=== PATIENT | female | born 1940 | race Caucasian/White ===

== ENCOUNTER → 2023-11-09 12:15 | Outpatient (REF) | payer MEDICARE, OTHER, SELFPAY | LOC: WDC 12:15 | PROVIDERS: ATTENDING PHYSICIAN Obstetrics & Gynecology; FAMILY PHYSICIAN Family Medicine | DX: Z12.31 Encounter for screening mammogram for malignant neoplasm of breast (principal) | CPT/HCPCS: 77063; 77067 ==

== ENCOUNTER 2024-01-27 13:51 | Emergency (ER) | payer MEDICARE, OTHER, SELFPAY ==
[2024-01-27 13:54] VITALS: BP 183/79
--- NOTE | 2024-01-27 14:39 | ED.GENMED ---
History of Present Illness
General
Chief Complaint: Allergic Reaction
Source: patient, spouse and family
Exam Limitations: none
Time Seen by Provider: 01/27/24 14:30
Nursing documentation reviewed up to this point in time: agreed with
History of Present Illness
History of Present Illness:
83-year-old female with past medical history as documented who presents to the emergency room with her family for evaluation after bee sting. 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 Patient reports that about an hour ago
she was folding some laundry when she felt a sting on her neck. She was able to bat to be away and caught the bee appears to be a yellowjacket she says. She sustained 1 sting to the right side of her neck. No additional stings. Came to the
emergency room given her history of allergy. She denies any rash or pruritus aside from localized reaction to the sting. She denies any shortness of breath. She denies any swelling in the face or mouth, no sensation of swelling in the throat.
She denies any nausea, vomiting, abdominal cramping. She denies any other complaints. She does have an EpiPen but did not administer it due to minimal symptoms.
Past History
Past History
ED Past Medical History: Arrthythmia (Atrial fib), HTN and Other (Pulmonary embolism, hypertension, arthritis.)
ED Past Surgical History: Appendectomy, Cardiac (Cardioversion,), Cholecystectomy, Orthopedic (Ford knee replacements) and Other (Noncontributory)
Social History
Tobacco: Non-smoker
Alcohol: None
Drug: None
Personal:
Living: with family
Family History
Family History: Other (Noncontributory)
Review of Systems
Review of Systems
All Other Systems: ROS reviewed and negative except as documented in HPI and ROS
EENT: Reports other (Denies facial or mouth swelling, throat swelling)
Respiratory: Denies trouble breathing
ABD/GI: Denies abdominal pain, nausea or vomiting
Skin: Denies itching or rash
Neurological: Denies dizzy
Phy Exam
Physical Exam
Physical Exam:
General: Awake, alert, oriented x3; anxious but no acute distress
Head: Normocephalic, atraumatic
Eyes: Conjunctiva normal
Throat: Airway intact, handling secretions, no swelling of the lips or tongue, midline uvula with no edema
Neck: Trachea midline, supple without meningismus; she has minor welt on the right anterior lateral neck with some localized redness but no significant amount of swelling
Lungs: Clear to auscultation bilaterally, no wheezing, rales, rhonchi
Heart: Regular rate and rhythm, no murmurs, gallops, or rubs
Abd: Soft, non distended, nontender
Neuro: No gross deficits
Skin: Staining on the right anterior lateral neck with localized redness but no hives or pruritus noted on rest of skin examination
Extremities: No edema in extremities, equal pulses in all extremities
Scores
Heart Failure Risk
Heart Failure Risk Score: Not Applicable
Heart Score for Chest Pain Patients
STEMI patient?: Not applicable
Withdrawal Assessment of Alcohol
Withdrawal Assessment Completed?: Not applicable
Course
Orders/Labs/Results
Orders:
Orders
01/27/24 14:38
Dexamethasone [Decadron] 10 mg PO NOW STA
Diphenhydramine [Benadryl] 25 mg PO NOW STA
Famotidine [Pepcid] 20 mg PO NOW STA
01/27/24 15:59
EKG [Electrocardiogram (*1)] Urgent
Reason for Study: Bradycardia / Tachycardia
EKG- Treatment ONCE
Vital Signs
Initial and Last Documented VS:
Initial Vital Signs
Temp Pulse Resp BP Pulse Ox
36.7 C 46 16 183/79 98
01/27/24 13:54 01/27/24 13:54 01/27/24 13:54 01/27/24 13:54 01/27/24 13:54
Last Documented Vital Signs
Temp Pulse Resp BP Pulse Ox
36.7 C 46 16 182/79 99
01/27/24 13:54 01/27/24 13:54 01/27/24 13:54 01/27/24 15:00 01/27/24 15:45
MDM/Problems Addressed
Differential Diagnosis Includes:
Insect bite/sting
MDM/Problems Addressed:
83-year-old female with history of bee allergy presents for evaluation after bee sting to the right side of her neck today about an hour ago. She has no symptoms aside from localized redness. She was hypertensive in triage improved by my
assessment, also mild to moderate bradycardia. Exam as above. At this point she has signs of localized sting but no signs of anaphylactic reaction. Will treat with a dose of dexamethasone and antihistamines. No indication for epinephrine at this
point without signs of anaphylaxis. Will monitor clinically here and reassess.
Clinical reassessment patient feeling very well. Localized erythema around the sting has resolved and she is feeling very well. Will continue to monitor for total of 4 hours from time of sting.
Patient has been persistently bradycardic here in the 40s. EKG shows sinus rhythm with first-degree AV block. She is on metoprolol for A-fib/SVT. She follows with Dr. Lopez for cardiology. She is not having any symptoms from her bradycardia.
Discussed case with cardiology recommended no changes to medications in the absence of symptoms. She can follow-up in the office. I did discuss with patient that she has had high blood pressure here as well, she will monitor it at home and
follow-up with her primary doctor.
Observed here for 4 hours status post bee sting. Local reaction has resolved and she has had no systemic symptoms. Stable for discharge at this point. She already has EpiPen and no need for refill. We did discuss her hypertension and bradycardia
as above, will follow-up as an outpatient. She is requesting discharge�we spoke about return precautions and all questions were answered.
Acute Exacerbation and/or Progression of Chronic Illness:
Acutely hypertensive likely related to anxiety�resolved without intervention continue to monitor but no additional antihypertensive treatment indicated at present
Acute Exacerbation and/or Progression of Chronic Illness: HTN
*Pulse Oximetry
Patient hypoxic: no
*Critical Care Note
Total Time (30-74mins, 75-104mins- exclusive of procedures): Not Applicable
Data Reviewed
Source: patient, spouse and family
Patient Management
Discussion with other providers: Assistant Property Manager (Discussed with cardiology)
ED Attending Note
-
Portions of this chart may have been created with voice recognition software.� Occasional wrong word or��sound alike� substitutions may have occurred due to the inherent limitations of voice recognition software.
Discharge Plan
Departure
Patient Disposition: Home (Routine Discharge)
Date of Disposition: 01/27/24
Time of Disposition: 16:54
Patient with high blood pressure during this ER visit?: Yes
Discharge Problem:
Bee sting reaction, Hypertension
Instructions: Insect Bites and Stings ED, BLOOD PRESSURE
Prescriptions:
No Action
ascorbic acid (vitamin C) [Vitamin C] 500 MG tablet
500 mg PO DAILY
vgxyuxdy-xox-VW-lycopen-lutein [Centrum Silver] 1 EACH tablet
2 tab PO DAILY
calcium citrate-vitamin D3 1 EACH tablet
1 tab PO DAILY
rxrwd-3l-yhe-epa-fish oil-D3 [Dry Eye [place] Benefits] 1 EACH capsule
3 ea PO DAILY
apixaban [Eliquis] 5 MG tablet
5 mg PO BID
lifitegrast [Xiidra] 1 EACH dropperette
1 drp BOTH EYES BID
Balance Of Nature 6 TAB Tab
6 tab PO DAILY
Patient Comments:
3 fruit/ 3 veg
albuterol sulfate [Ventolin HFA] 90 MCG/PUFF HFA aerosol inhaler
2 puff inhalation Q4HPRN PRN (Reason: SOB)
Patient Comments:
Pt has RX, never used
metoprolol succinate 25 MG tablet extended release 24 hr
25 mg PO DAILY Qty: 0 0RF
Rx Instructions:
Please note decreased dose
Referrals:
Endy Lopez MD [Active] - Call in 1-3 days for appt
Jeovanny Chris MD [Family Provider] -
Activity Restrictions/Additional Instructions:
Thank you for visiting the Emergency Department at [facility].
1. Please schedule a follow up appointment as directed. Call first thing tomorrow morning to make an appointment.
2. If indicated, please take your medications as instructed and indicated on discharge paperwork.
3. If any of your symptoms do not improve, or persist, or become more severe within 6-12 hours, please return to the emergency department for further care.
4. Please return to the emergency department if you develop a headache, neck pain/stiffness, fever greater than 100.4F, chest pain, shortness of breath, persistent nausea, vomiting, slurred speech, difficulty walking, numbness/tingling, weakness,
signs of infection or any other symptoms that are worrisome to you.
Please call [phone] if you have any questions.
Interventions
Interventions:
*General Assessment Last Done: 01/27/24 13:54
*ED COVID-19 Vaccine History Last Done: 01/27/24 13:54
ED- Cardiac Assessment Last Done: 01/27/24 14:49
ED- Pulmonary Assessment Last Done: 01/27/24 14:49
ED-Skin Assessment Last Done: 01/27/24 14:49
Discharge Date and Time
Print Language: FRISIAN
[2024-01-27] MEDS: BENADRYL 25 MG PO (14:45)
[2024-01-27] MEDS: PEPCID 20 MG PO (14:45)
[2024-01-27] MEDS: DECADRON 10 MG PO (14:45)
[2024-01-27 14:49] VITALS: BMI 32.9
[2024-01-27 14:56] VITALS: BP 188/79
[2024-01-27 15:00] VITALS: BP 182/79
== END 2024-01-27 17:24 | disposition home or self-care (01) ==
LOC: EMR 13:51
PROVIDERS: EMERGENCY PHYSICIAN Emergency Medicine; FAMILY PHYSICIAN Family Medicine
DX: T63.441A Toxic effect of venom of bees, accidental (unintentional), initial encounter (principal); I48.91 Unspecified atrial fibrillation; I10 Essential (primary) hypertension; I47.10 Supraventricular tachycardia, unspecified; Z86.711 Personal history of pulmonary embolism; Z90.49 Acquired absence of other specified parts of digestive tract; Z96.653 Presence of artificial knee joint, bilateral
CPT/HCPCS: 99283; 93005

== ENCOUNTER → 2024-06-27 07:55 | Outpatient (REF) | payer MEDICARE, OTHER, SELFPAY | LOC: DHCBC/DCA 07:55 | PROVIDERS: ATTENDING PHYSICIAN Internal Medicine Cardiovascular Disease; FAMILY PHYSICIAN Family Medicine | DX: R07.89 Other chest pain (principal) | CPT/HCPCS: 78452; 93017; A9500; J2785 ==

== ENCOUNTER → 2024-07-18 15:08 | Outpatient (REF) | payer MEDICARE, OTHER, SELFPAY | LOC: HWRAD 15:08 | PROVIDERS: ATTENDING PHYSICIAN Family Medicine | DX: Z20.828 Contact with and (suspected) exposure to other viral communicable diseases (principal); J44.9 Chronic obstructive pulmonary disease, unspecified; I48.0 Paroxysmal atrial fibrillation; R05.9 Cough, unspecified; J01.90 Acute sinusitis, unspecified | CPT/HCPCS: 71046 ==

== ENCOUNTER → 2024-10-01 14:02 | Outpatient (REF) | payer MEDICARE, OTHER, SELFPAY | LOC: HWRAD 14:02 | PROVIDERS: ATTENDING PHYSICIAN Obstetrics & Gynecology; FAMILY PHYSICIAN Family Medicine | DX: Z78.0 Asymptomatic menopausal state (principal) | CPT/HCPCS: 77080 ==

== ENCOUNTER → 2024-11-27 12:50 | Outpatient (REF) | payer MEDICARE, OTHER, SELFPAY | LOC: WDC 12:50 | PROVIDERS: ATTENDING PHYSICIAN Obstetrics & Gynecology; FAMILY PHYSICIAN Family Medicine | DX: Z12.31 Encounter for screening mammogram for malignant neoplasm of breast (principal) | CPT/HCPCS: 77063; 77067 ==

== ENCOUNTER 2024-12-12 02:51 | Emergency (ER) | payer MEDICARE, OTHER, SELFPAY ==
[2024-12-12 03:03] VITALS: BP 161/76
[2024-12-12 03:26] LABS: % Basophils 1.3 % (0-2); % Eosinophils 1.5 % (0-6); % Immature Granulocytes 0.2 % (0-0.5); % Lymphocytes 38.3 % (20.5-51.1); % Monocytes 9.8 % (1.7-9.3); % Neutrophils 48.9 % (42.2-75.2); Absolute Basophils 0.1 10^3/uL (0-0.2); Absolute Eosinophils 0.1 10^3/uL (0-0.7); Absolute Lymphocytes 1.8 10^3/uL (1.2-3.4); Absolute Monocytes 0.5 10^3/uL (0.1-0.6); Absolute Neutrophils 2.4 10^3/uL (1.4-6.5); Hematocrit 42.3 % (37.0-47.0); Hemoglobin 14.7 g/dL (12.0-16.0); Mean Corp Hgb Conc. 34.8 g/dL (33.0-37.0); Mean Corpuscular Hgb 32.3 pg (27.0-31.0); Mean Platelet Volume 9.1 fL (7.4-10.4); Nucleated Red Blood Cells % 0 %; Platelet Count 205 10^3/uL (130-400); Red Blood Cell Count 4.55 10^6/uL (4.20-5.40); Red Cell Dist. Width 11.9 % (11.5-14.5); White Blood Cell Count 4.8 10^3/uL (4.8-10.8)
[2024-12-12 03:53] LABS: ALT (SGPT) 18 U/L (0-35); AST (SGOT) 28 U/L (14-36); Albumin 4.3 g/dl (3.5-5.0); Alkaline Phosphatase 80 U/L (38-126); Blood Urea Nitrogen 15 mg/dl (7-17); Calcium 10.2 mg/dl (8.4-10.2); Carbon Dioxide 28 mmol/L (22-30); Chloride 101 mmol/L (98-107); Glucose 98 mg/dl (70-99); Lipase 172 U/L (23-300); Potassium 4.2 mmol/L (3.5-5.1); Sodium 136 mmol/L (135-145); Total Bilirubin 0.6 mg/dl (0.2-1.3); eGFR > 60.00
--- NOTE | 2024-12-12 05:40 | ED.GENMED ---
History of Present Illness
<Emily Schilling PA-C - Last Filed: 12/12/24 08:22>
General
Chief Complaint: Abdominal Pain
Source: patient
Exam Limitations: none
Time Seen by Provider: 12/12/24 05:14
Nursing documentation reviewed up to this point in time: agreed with
History of Present Illness
History of Present Illness:
84-year-old female with a past medical history of A-fib on Eliquis, PE, hypertension, presents emergency department today with concerns of left abdominal/rib pain. Patient reports that this started around 7 PM prior to going to bed. The pain woke
her up from sleep. Does get better with Tylenol. She denies any nausea or vomiting. She denies any fevers or chills. She also notes back pain on both sides. She denies any dysuria. She denies any hematuria. She has a past surgical history of
appendectomy and cholecystectomy. She denies shortness of breath or chest pain.
Past History
<Emily Schilling PA-C - Last Filed: 12/12/24 08:22>
Past History
ED Past Medical History: Arrthythmia (Atrial fib), HTN and Other (Pulmonary embolism, hypertension, arthritis.)
ED Past Surgical History: Appendectomy, Cardiac (Cardioversion,), Cholecystectomy, Orthopedic (Ford knee replacements) and Other (Noncontributory)
Social History
Tobacco: Non-smoker
Alcohol: None
Drug: None
Personal:
Living: with family
Family History
Family History: Other (Noncontributory)
Review of Systems
<Emily Schilling PA-C - Last Filed: 12/12/24 08:22>
Review of Systems
All Other Systems: ROS reviewed and negative except as documented in HPI and ROS
Phy Exam
<Emily Schilling PA-C - Last Filed: 12/12/24 08:22>
Physical Exam
Physical Exam:
General: Patient is well appearing and in no acute distress; non-toxic
Skin: Warm and dry, no rashes or lesions
Head: Normocephalic, atraumatic
Eyes: Sclera non-icteric. EOMs intact.
Cardiac: Regular rate and rhythm, no murmurs
Peripheral Vascular: No lower extremity swelling or edema, negative Homans' sign bilaterally
Pulm: Normal respiratory effort, no wheezes, rales, rhonchi, left lower rib tenderness to palpation
Abdomen: No abdominal tenderness to palpation, abdomen soft
Neuro: CN II-XII intact, no focal neurologic deficits.
Psychiatric: Appropriate mood and affect.
Course
<Emily Schilling PA-C - Last Filed: 12/12/24 08:22>
Orders/Labs/Results
Orders:
Orders
12/12/24 03:16
Complete Blood Count/With Diff Urgent
Comprehensive Metabolic Panel Urgent
Lipase Urgent
12/12/24 05:45
CT Abd/pel Without Iv Or Oral Urgent
Comment:
Reason For Exam: left cva tenderness
12/12/24 05:53
Urinalysis Reflex To Culture Urgent
Date Specimen was Collected: 12/12/24
Time Specimen was Collected: 05:52
12/12/24 06:06
Electrocardiogram (*1) Urgent
Reason for Study: Abdominal Pain
12/12/24 06:27
Troponin I Urgent
12/12/24 07:04
Lidocaine [Lidocaine 4% Patch] 1 patch TOPICAL DAILY ONE
Apply Lidocaine patch(s) to:: left flank/rib area
Abnormal Lab Results
12/12/24
03:16
MCH 32.3 H pg
(27.0-31.0)
Monocytes % 9.8 H %
(1.7-9.3)
06/05/25 03:16
12/12/24 03:16
Vital Signs
Initial and Last Documented VS:
Initial Vital Signs
Temp Pulse Resp BP Pulse Ox
97.9 F 50 18 161/76 98
12/12/24 03:03 12/12/24 03:03 12/12/24 03:03 12/12/24 03:03 12/12/24 03:03
Last Documented Vital Signs
Temp Pulse Resp BP Pulse Ox
97.9 F 50 18 135/68 97
12/12/24 03:03 12/12/24 03:03 12/12/24 03:03 12/12/24 07:00 12/12/24 07:00
<Laura Estrada, DO - Last Filed: 12/12/24 07:40>
Orders/Labs/Results
Orders:
Orders
12/12/24 03:16
Complete Blood Count/With Diff Urgent
Comprehensive Metabolic Panel Urgent
Lipase Urgent
12/12/24 05:45
CT Abd/pel Without Iv Or Oral Urgent
Comment:
Reason For Exam: left cva tenderness
12/12/24 05:53
Urinalysis Reflex To Culture Urgent
Date Specimen was Collected: 12/12/24
Time Specimen was Collected: 05:52
12/12/24 06:06
Electrocardiogram (*1) Urgent
Reason for Study: Abdominal Pain
12/12/24 06:27
Troponin I Urgent
12/12/24 07:04
Lidocaine [Lidocaine 4% Patch] 1 patch TOPICAL DAILY ONE
Apply Lidocaine patch(s) to:: left flank/rib area
Abnormal Lab Results
12/12/24
03:16
MCH 32.3 H pg
(27.0-31.0)
Monocytes % 9.8 H %
(1.7-9.3)
12/12/24 03:16
12/12/24 03:16
Vital Signs
Initial and Last Documented VS:
Initial Vital Signs
Temp Pulse Resp BP Pulse Ox
97.9 F 50 18 161/76 98
12/12/24 03:03 12/12/24 03:03 12/12/24 03:03 12/12/24 03:03 12/12/24 03:03
Last Documented Vital Signs
Temp Pulse Resp BP Pulse Ox
97.9 F 50 18 135/68 97
12/12/24 03:03 12/12/24 03:03 12/12/24 03:03 12/12/24 07:00 12/12/24 07:00
<Emily Schilling PA-C - Last Filed: 12/12/24 08:22>
MDM/Problems Addressed
Differential Diagnosis Includes:
Differentials include nephrolithiasis, pleurisy,, pyelonephritis, UTI, gastritis, rib contusion
MDM/Problems Addressed:
85-year-old female presents emergency department today with concerns of left upper abdominal pain/left rib pain. Pain improves with Tylenol. Upon arrival to emergency department, she feels well and she did not require any additional medication for
pain. Her symptoms resolved completely. Her urinalysis is negative for infection. CBC and CMP are unremarkable. Her CAT scan shows incidental findings but nothing to explain her symptoms today. Suspect musculoskeletal etiology versus recently
passed stone. We did obtain an EKG because of the vague upper abdominal pain/rib pain which did show T wave inversions laterally which not seen previously so he did get a troponin which was undetectable. No need to repeat troponin considering
patient did not have chest pain and her symptoms resolved. Did recommend following up with her media marketing director. And her PCP. Patient stable for discharge.
<Emily Schilling PA-C - Last Filed: 12/12/24 08:22>
*Critical Care Note
Total Time (30-74mins, 75-104mins- exclusive of procedures): Not Applicable
ED Attending Note
<Emily Schilling PA-C - Last Filed: 12/12/24 08:22>
-
Portions of this chart may have been created with voice recognition software.� Occasional wrong word or��sound alike� substitutions may have occurred due to the inherent limitations of voice recognition software.
<Laura Estrada DO - Last Filed: 12/12/24 07:40>
ED Attending Note
Patient seen and examined by attending physician: Yes
I performed a history and physical exam of patient and discussed management with resident, I reviewed resident's note and agree with documented findings and plan of care.: Yes
ED Attending Note:
84-year-old quite spry woman who resides at home with her . History of paroxysmal atrial fibrillation chronically maintained on Eliquis. History of hypertension, lumbar disc disease with remote history of sciatica.
She presents with somewhat abrupt onset of left upper quadrant pain that began around 8 PM as well as some intermittent mid back pain. She admits the pain would come and go in waves. No chest pain, no cough no shortness of breath, no nausea or
vomiting. No history of similar episodes in the past.
She denies injury or fall but was helping to move furniture the day prior.
Initial exam remarkable for mild tenderness left distal costal margin. No reproducible back tenderness, no CVA tenderness.
No appreciable abdominal tenderness.
Concern for musculoskeletal pain, renal colic, less likely ACS.
Patient is now pain-free and comfortable.
Labs are unremarkable as is urinalysis. Awaiting troponin.
EKG shows sinus bradycardia, similar to previous. She remains hemodynamically stable.
CAT scan shows left renal cyst, concern for potential mild fullness of left renal pelvis however urinalysis is clear without hematuria. Pain may have been related to recently passed stone.
There is also note of a right pelvic mass concern for right ovarian mass. Patient continues to have no abdominal pain specifically no lower abdominal tenderness. She follows regularly with [facility] [facility] with routine visit just 1 month ago.
If troponin is negative will plan for discharge to home with recommendation for prompt follow-up with PCP for regular check and recommend follow-up with [employer] [facility] as well.
Return precautions discussed.
Discharge Plan
Departure
Patient Disposition: Home (Routine Discharge)
Date of Disposition: 12/12/24
Time of Disposition: 07:31
Patient with high blood pressure during this ER visit?: Yes
Condition: Good
Discharge Problem:
Rib pain on left side
Instructions: Back Pain, BLOOD PRESSURE
Prescriptions:
New
lidocaine 5 % adhesive patch,medicated
1 patch topical DAILY Qty: 30 0RF
No Action
ascorbic acid (vitamin C) [Vitamin C] 500 MG tablet
500 mg PO DAILY
msvpccqd-kbw-ZJ-lycopen-lutein [Centrum Silver] 1 EACH tablet
2 tab PO DAILY
calcium citrate-vitamin D3 1 EACH tablet
1 tab PO DAILY
mmrhu-4m-aog-epa-fish oil-D3 [Dry Eye [place] Benefits] 1 EACH capsule
3 ea PO DAILY
apixaban [Eliquis] 5 MG tablet
5 mg PO BID
lifitegrast [Xiidra] 1 EACH dropperette
1 drp BOTH EYES BID
Balance Of Nature 6 TAB Tab
6 tab PO DAILY
Patient Comments:
3 fruit/ 3 veg
albuterol sulfate [Ventolin HFA] 90 MCG/PUFF HFA aerosol inhaler
2 puff inhalation Q4HPRN PRN (Reason: SOB)
Patient Comments:
Pt has RX, never used
metoprolol succinate 25 MG tablet extended release 24 hr
25 mg PO DAILY Qty: 0 0RF
Rx Instructions:
Please note decreased dose
Referrals:
UNKNOWN - PT DOES,NOT KNOW [Unknown Provider]
Activity Restrictions/Additional Instructions:
Lidocaine has been sent to your pharmacy. Apply 1 patch over the affected area once daily. You can remove the patch after 12 hours.
Please call your primary care provider tomorrow for a follow-up appointment.
PLEASE RETURN EMERGENCY DEPARTMENT SHOULD YOU DEVELOP ACUTE WORSENING OR SYMPTOMS, SHORTNESS OF BREATH, CHEST PAIN, LIGHTHEADEDNESS, DIZZINESS, ABDOMINAL PAIN, INTRACTABLE NAUSEA OR VOMITING, CONSTIPATION OR DIARRHEA, OR ANY OTHER SIGNS OR SYMPTOMS
WORRISOME TO YOU.
Interventions
Interventions:
*Risk Screen - Suicide Last Done: 12/12/24 03:03
*General Assessment Last Done: 12/12/24 03:03
*Neglect/Abuse Screening Last Done: 12/12/24 03:03
*ED COVID-19 Vaccine History Last Done: 12/12/24 03:07
EG-Nfjjbg-Ggwgrppctd Assessment Last Done: 12/12/24 05:00
Discharge Date and Time
Print Language: TUVALU[place]
[2024-12-12 05:43] VITALS: BP 158/75
[2024-12-12 06:23] LABS: Urine Albumin Negative (Neg - Trace); Urine Bilirubin Negative (Negative); Urine Character Clear (Clear); Urine Color Yellow; Urine Glucose Negative (Negative); Urine Ketone Negative (Negative); Urine Leukocyte Negative (Negative); Urine Nitrite Negative (Negative); Urine Occult Blood Negative (Negative); Urine Specific Gravity 1.015 (<1.030); Urine Urobilinogen Negative (Neg - 1+)
[2024-12-12 06:38] VITALS: BP 152/65
[2024-12-12 07:00] VITALS: BP 135/68
[2024-12-12] MEDS: LIDOCAINE 4% PATCH 1 PATCH TOPICAL (07:18)
[2024-12-12 07:29] LABS: Troponin I < 0.012 ng/ml
== END 2024-12-12 09:02 | disposition home or self-care (01) ==
LOC: EMR 02:51
PROVIDERS: Physician Assistant; EMERGENCY PHYSICIAN Emergency Medicine; FAMILY PHYSICIAN Family Medicine
DX: R07.81 Pleurodynia (principal); I48.91 Unspecified atrial fibrillation; I11.9 Hypertensive heart disease without heart failure; Z79.01 Long term (current) use of anticoagulants; Z86.711 Personal history of pulmonary embolism; Z90.49 Acquired absence of other specified parts of digestive tract; Z96.653 Presence of artificial knee joint, bilateral
CPT/HCPCS: 99284; 74176; 80053; 81003; 83690; 84484; 85025; 93005

== ENCOUNTER → 2025-02-12 10:02 | Outpatient (REF) | payer MEDICARE, OTHER, SELFPAY | LOC: HWRAD 10:02 | PROVIDERS: ATTENDING PHYSICIAN Obstetrics & Gynecology; FAMILY PHYSICIAN Family Medicine | DX: N83.291 Other ovarian cyst, right side (principal) | CPT/HCPCS: 76830; 76856 ==

== ENCOUNTER → 2025-03-21 07:36 | Outpatient (REF) | payer MEDICARE, OTHER, SELFPAY | LOC: PAVMRI 07:36 | PROVIDERS: ATTENDING PHYSICIAN Specialist; FAMILY PHYSICIAN Family Medicine | DX: Q61.01 Congenital single renal cyst (principal) | CPT/HCPCS: 74183; A9575 ==

== ENCOUNTER → 2025-05-02 12:30 | Outpatient (REF) | payer MEDICARE, OTHER, SELFPAY | LOC: MRI 12:30 | PROVIDERS: ATTENDING PHYSICIAN Obstetrics & Gynecology; FAMILY PHYSICIAN Family Medicine | DX: R93.89 Abnormal findings on diagnostic imaging of other specified body structures (principal) | CPT/HCPCS: 72197 ==